=== PATIENT | male | born 2000 | race African-American/Black ===

== ENCOUNTER 2020-08-19 01:01 | Emergency (ER) | payer OTHER, SELFPAY ==
[2020-08-19 01:56] VITALS: BP 145/95; PULSE 109; RESP 18; TEMP 36.7; O2SAT 99
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
[2020-08-19] MEDS: Lidocaine HCl 1 % MPF 5 ML VIAL INFILTRATI ×2 (02:45)
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
--- NOTE | 2020-08-19 03:08 | PC.NURSE ---
DIRECTOR OF FINANCIAL AID AT BEDSIDE SPEAKING TO PATIENT.
== END 2020-08-19 03:40 | disposition home or self-care (01) ==
PROVIDERS: Emergency Provider Student in an Organized Health Care Education/Training Program
DX: S01.81XA Laceration without foreign body of other part of head, initial encounter (principal); Y00.XXXA Assault by blunt object, initial encounter; Y93.9 Activity, unspecified; Y92.9 Unspecified place or not applicable; Y99.9 Unspecified external cause status
CPT/HCPCS: 12011; 99283; 99284

== ENCOUNTER 2020-08-20 21:22 | Emergency (ER) | payer OTHER, SELFPAY ==
[2020-08-20 21:24] VITALS: BP 140/83; PULSE 72; RESP 18; TEMP 37.1; O2SAT 99; BMI 30.8
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
== END 2020-08-20 22:26 | disposition home or self-care (01) ==
PROVIDERS: Emergency Provider Emergency Medicine
DX: S06.0X0A Concussion without loss of consciousness, initial encounter (principal); W22.8XXA Striking against or struck by other objects, initial encounter; Y93.9 Activity, unspecified; Y92.019 Unspecified place in single-family (private) house as the place of occurrence of the external cause; Y99.9 Unspecified external cause status
CPT/HCPCS: 99284

== ENCOUNTER 2021-10-26 17:17 | Emergency (ER) | payer OTHER, SELFPAY ==
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
[2021-10-26 17:26] VITALS: BP 152/90; PULSE 100; O2SAT 99
[2021-10-26 17:28] VITALS: BP 152/68; PULSE 100; RESP 18; TEMP 36.6; O2SAT 98; BMI 33.3
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
== END 2021-10-26 20:16 | disposition home or self-care (01) ==
PROVIDERS: Emergency Provider Emergency Medicine; PCP Internal Medicine
DX: S13.4XXA Sprain of ligaments of cervical spine, initial encounter (principal); S39.012A Strain of muscle, fascia and tendon of lower back, initial encounter; S80.02XA Contusion of left knee, initial encounter; V44.5XXA Car driver injured in collision with heavy transport vehicle or bus in traffic accident, initial encounter; Y93.89 Activity, other specified; Y92.410 Unspecified street and highway as the place of occurrence of the external cause; Y99.9 Unspecified external cause status
CPT/HCPCS: 70140; 73560; 99283

== ENCOUNTER 2025-04-05 23:50 | Emergency (ER) | payer OTHER, SELFPAY ==
[2025-04-05 23:54] VITALS: BP 136/93; PULSE 89; RESP 16; TEMP 36.9; O2SAT 97; BMI 33.2
--- NOTE | 2025-04-06 00:11 | ED_ITS ---
HPI - General Adult General Chief complaint: Nausea/Vomiting/Diarrhea Stated complaint: hemmroids? Time Seen by Provider: 04/06/25 00:04 Source: patient Limitations: no limitations History of Present Illness ED Provider: Katy Templeton PA-C HPI narrative: 24-year-old male presents with diarrhea. Patient states he ate taco teague last night, since 3:00 a.m. yesterday he has had ongoing diarrhea. Patient states he has had more than 20 episodes. Associated rectal pain. Patient thinks he may have a hemorrhoid. Denies recent hospitalization, travel out of the country or use of antibiotics. Denies sick contacts with similar symptoms. No fevers, no abdominal pain. No nausea vomiting. Related Data Previous Rx's ?Medication ?Instructions ?Recorded cyclobenzaprine 10 mg tablet 10 mg PO TID #10 tabs 10/26/21 naproxen 500 mg tablet (Naprosyn) 500 mg PO BID #20 tabs 10/26/21 Allergies Allergy/AdvReac Type Severity Reaction Status Date / Time apple [APPLES] Allergy Unknown HIVES Verified 04/05/25 23:57 nut - unspecified [NUTS] Allergy Unknown HIVES Verified 04/05/25 23:57 pineapple [PINEAPPLE] Allergy Unknown NOT SURE Verified 04/05/25 23:57 tree, nuts, fresh apples - Allergy Unknown Unknown Uncoded 04/05/25 23:57 ora Review of Systems 2 Review of Systems: Yes all other systems are reviewed and are negative Constitutional: Constitutional: Denies fatigue and Denies fever(s) Cardiovascular: Cardiovascular: Denies chest pain and Denies dyspnea Respiratory: Respiratory: Denies cough and Denies dyspnea Gastrointestinal: Gastrointestinal: Denies abdominal pain, Reports diarrhea, Denies nausea and Denies vomiting Endocrine: Endocrine: Denies fatigue PMFSH Past Medical History Attestation statement: The following information was validated with the patient. Medical History Appendicitis Patient denies medical problems Social History Social History Advance Directives: No Advance Directives Information Provided: No Do you have a plan to hurt others: No Plan Physical Exam ED Vital Signs: Vital Signs - 24 hr 05/24/25 23:54 Temperature 98.5 F Pulse Rate 89 Respiratory Rate 16 Blood Pressure 136/93 H Pulse Oximetry 97 Oxygen Delivery Method Room Air BMI result Body Mass Index 33.2 Const Other: Alert well-appearing Orientation/consciousness: patient oriented x3 Resp Effort & Inspection: normal respiratory effort Cardio Other: Normal peripheral perfusion Skin Other: Warm dry no rash Neuro General: patient oriented x3, gait normal, no focal motor deficits and CN's II- XI intact bilaterally Psych Other: Cooperative Medications Administered Generic Name Dose Route Start Last Admin Trade Name Yordy PRN Reason Stop Dose Admin Sodium Chloride 1,000 mls @ 999 mls/hr 04/06/25 00:30 04/06/25 00:47 Ns IV 04/06/25 01:30 999 mls/hr .Q1H1M AUREA Administration Medical Decision Making Medical Decision Making [facility] Narrative: 24-year-old male presents with diarrhea. Patient states he ate taco teague last night, since 3:00 a.m. yesterday he has had ongoing diarrhea. Patient states he has had more than 20 episodes. Associated rectal pain. Patient thinks he may have a hemorrhoid. Denies recent hospitalization, travel out of the country or use of antibiotics. Denies sick contacts with similar symptoms. No fevers, no abdominal pain. No nausea vomiting. No chronic issues History: Per patient I have considered the following differential diagnoses: Diverticulitis, traveler's diarrhea, C diff, viral gastroenteritis, food poisoning Plan: The patient is only symptoms for diarrhea after eating fast food, it is likely triggered by that. He has no risk factors for C diff or traveler's diarrhea. He has no abdominal pain, diverticulitis least likely. He has no sick contacts with similar symptoms, viral gastroenteritis less likely as well. We will screen basic labs to assess for dehydration and/or electrolyte abnormalities, giving IV fluid. Imaging not warranted. I have independently reviewed the following tests: Labs: Lab Data 04/06/25 00:25 04/06/25 00:25 Labs: Lab Results 04/06/25 Range/Units 00:25 WBC 5.4 (4.8-10.8) X10*3/uL RBC 4.77 (4.60-5.80) X10*6/uL Hgb 14.1 (14.0-18.0) g/dl Hct 40.0 L (42.0-52.0) % MCV 83.9 (80.0-98.0) fL MCH 29.6 (27.0-33.0) pg MCHC 35.3 (31.0-36.0) g/dl RDW 11.1 (11.0-16.0) % Plt Count 178 (160-400) X10*3/uL MPV 10.3 (9.4-12.4) fL Immature Gran % (Auto) 0.2 (0.0-0.4) % Neut % (Auto) 76.6 H (45-73) % Lymph % (Auto) 14.8 L (20-40) % [place] % (Auto) 6.7 (2-11) % Eos % (Auto) 1.5 (0-4) % Baso % (Auto) 0.2 (0-2) % Lymph # (Auto) 0.8 L (1.2-4.9) X10*3/uL [place] # (Auto) 0.4 (0.1-1.2) X10*3/uL Eos # (Auto) 0.1 (0.0-0.4) X10*3/uL Baso # (Auto) 0.0 (0.0-0.2) X10*3/uL Abs Immat Gran (auto) 0.01 (0.00-0.03) X10*3/uL Absolute Neuts (auto) 4.1 (2.0-8.3) x10*3/uL Absolute Nucleated RBC 0.000 (0.0-0.012) X10*3/uL Nucleated RBC % (auto) 0.0 (0.0-0.2) /100WBC Sodium 140 (135-145) mmol/L Potassium 4.1 (3.3-5.1) mmol/L Chloride 103 (96-108) mmol/L Carbon Dioxide 28 (22-29) mmol/L Anion Gap 13 (12-20) BUN 8 L (9-16) mg/dL Creatinine 0.90 (0.5-1.4) mg/dL Estim Creat Clear Calc 155.4 Estimated GFR > 60 Random Glucose 96 (60-115) mg/dL Calcium 9.5 (8.4-10.2) mg/dL Magnesium 1.8 (1.6-2.6) mg/dL Total Bilirubin 1.3 H (0.0-1.0) mg/dL AST 28 (5-37) U/L ALT 29 (0-40) U/L Alkaline Phosphatase 60 (39-117) U/L Total Protein 7.4 (6.5-8.0) g/dL Albumin 4.6 (3.5-5.0) g/dL Lipase 10 (8-78) U/L Discharge Plan Discharge Clinical Impression: Diarrhea Patient Disposition: Home, Self-Care Instructions: Acute Diarrhea (ED) Additional Instructions: All of your labs were normal. See home care instructions. Consume a bland diet over the next few days. Drank liquids that are electrolyte based. For your rectal irritation you can apply [id number] hydrocortisone cream, and a moisture barrier such as Vaseline or Eucerin. Follow up with your primary care provider as needed. Prescriptions: No Action cyclobenzaprine 10 mg tablet 10 mg PO TID Qty: 10 0RF naproxen [Naprosyn] 500 mg tablet 500 mg PO BID Qty: 20 0RF Print Language: [place]
[2025-04-06 00:31] LABS: MANUAL DIFF FLAG NO
[2025-04-06 00:33] LABS: Basophils Percent Auto 0.2 % (0-2); Eosinophils Absolute Auto 0.1 X10*3/uL (0.0-0.4); Eosinophils Percent Auto 1.5 % (0-4); Hemoglobin 14.1 g/dl (14.0-18.0); Imm Gran Abs Auto 0.01 X10*3/uL (0.00-0.03); Imm Gran Pct Auto 0.2 % (0.0-0.4); Lymphocytes Absolute Auto 0.8 X10*3/uL (1.2-4.9); Lymphocytes Percent Auto 14.8 % (20-40); Mean Corpuscular HGB Conc 35.3 g/dl (31.0-36.0); Mean Corpuscular Hemoglobin 29.6 pg (27.0-33.0); Mean Corpuscular Volume 83.9 fL (80.0-98.0); Mean Platelet Volume 10.3 fL (9.4-12.4); Monocytes Absolute Auto 0.4 X10*3/uL (0.1-1.2); Monocytes Percent Auto 6.7 % (2-11); Neutrophils Absolute Auto 4.1 x10*3/uL (2.0-8.3); Neutrophils Percent Auto 76.6 % (45-73); Platelet Count 178 X10*3/uL (160-400); Red Blood Count 4.77 X10*6/uL (4.60-5.80); Red Cell Distribution Width 11.1 % (11.0-16.0); White Blood Count 5.4 X10*3/uL (4.8-10.8)
[2025-04-06 00:46] LABS: Alanine Aminotransferase 29 U/L (0-40); Albumin Level 4.6 g/dL (3.5-5.0); Alkaline Phosphatase 60 U/L (39-117); Anion Gap 13 (12-20); Aspartate Amino Transferase 28 U/L (5-37); Bilirubin Total 1.3 mg/dL (0.0-1.0); Blood Urea Nitrogen 8 mg/dL (9-16); Calcium 9.5 mg/dL (8.4-10.2); Carbon Dioxide 28 mmol/L (22-29); Chloride 103 mmol/L (96-108); Creatinine Clr Calc Pharmacy 155.4; Estimated Glomerular Filt Rate > 60; Glucose Random 96 mg/dL (60-115); Lipase 10 U/L (8-78); Magnesium 1.8 mg/dL (1.6-2.6); Potassium 4.1 mmol/L (3.3-5.1); Sodium 140 mmol/L (135-145); Total Protein 7.4 g/dL (6.5-8.0)
[2025-04-06] MEDS: 0.9 % Sodium Chloride 1,000 ML 999 ML IV (00:47)
[2025-04-06 01:38] VITALS: BP 144/86; PULSE 86; RESP 16; TEMP 36.8; O2SAT 97
== END 2025-04-06 01:39 | disposition home or self-care (01) ==
PROVIDERS: Emergency Provider Emergency Medicine Emergency Medical Services; PCP Internal Medicine
DX: R11.2 Nausea with vomiting, unspecified (principal); R19.7 Diarrhea, unspecified; Z79.899 Other long term (current) drug therapy
CPT/HCPCS: 36415; 80053; 83690; 83735; 85025; 96360; 99284